=== PATIENT | male | born 1960 | race Caucasian/White ===

== ENCOUNTER 2016-10-04 12:07 | Emergency (ER) | payer MEDICAID ==
[2016-10-04 12:52] VITALS: BMI 48.0
[2016-10-04 13:03] LABS: MPV 7.5 fL (7.4-10.4)
[2016-10-04 13:16] LABS: BLOOD UREA NITROGEN 19 MG/DL (9-20); CALCIUM 8.8 MG/DL (8.4-10.2); CALCULATED OSMOLALITY 271 MOs/Kg (270-290); CHLORIDE 101 mEq/L (98-107); GLUCOSE 218 MG/DL (70-99); SODIUM LEVEL 136 mEq/L (137-146); TOTAL PROTEIN 7.5 G/DL (6.3-8.2)
[2016-10-04 13:18] LABS: PARTIAL THROMB. TIME 27.3 SEC (22-35)
[2016-10-04 13:49] LABS: SEG NEUTROPHIL 79 % (45-76)
[2016-10-04] MEDS ORDERED: MORPHINE 4 MG/ML INJECTION IV ONE (15:21)
[2016-10-04] MEDS ORDERED: ONDANSETRON HCL 4 MG/2 ML VIAL IV ONE (15:21)
[2016-10-04] MEDS ORDERED: NS 2,000 ML IV ONE (15:21)
--- NOTE | 2016-10-04 15:25 | EDPRACDOC ---
- General Information Information Source: Patient Mode Of Arrival: Car - History of Present Illness Onset: last night Exact Onset of Symptoms: Unknown HPI: PT PRESENTS STATING HE BEGAN VOMITING LAST NIGHT AND HAVING SOME BLOOD STREAKING IN HIS STOOL. STATES TODAY HE IS HAVING SHOULDER AND BACK PAIN. STATES HE ALSO HAS BEEN HAVING SOME SUBSTERNAL CHEST PAIN. DENIES SHOB. Symptoms Started: Reports: Gradually Symptoms Description: Constant Symptoms: Reports: Weak Symptom Severity: Reports: Unable to performs ADL's Relevant History of: Reports: GI Bleed, HI Associated signs and symptoms:: Reports: Chest pain, Vomiting <Susan Ortiz - Last Filed: 10/04/16 18:36> - History of Present Illness HPI: MD NOTE SEEN AND EXAMINED; THREE NEG TROPONINS. NL VQ SCAN. DIARRHEA WITH BLOOD STREAKS. STABLE FOR DC; NO CP FOR ME JUST DIFFUSE MUSCLE PAIN WITH N/V/D HILL <Stu Jackson - Last Filed: 10/04/16 19:26> - General Information Chief Complaint: Generalized Weakness Stated Complaint: WEAKNESS Time Seen by Provider: 10/04/16 15:14 Home Medications: Home Medications Doxepin HCl 50 mg PO HS 10/06/12 Lurasidone HCl [Latuda] 40 mg PO HS 10/06/12 Trazodone HCl [Desyrel] 150 mg PO HS 03/07/13 Temazepam [Restoril] 30 mg PO HS 04/23/13 Gabapentin [Neurontin] 300 mg PO TID 12/05/14 Amlodipine Besylate [Norvasc] 10 mg PO QHS 07/29/16 Lisinopril [Prinivil] 5 mg PO QHS 07/29/16 Lorazepam [Ativan] 0.5 - 1 mg PO Q8H 07/29/16 Carvedilol [Coreg] 3.125 mg PO BID 10/04/16 Cyclobenzaprine HCl [Flexeril] 10 mg PO TID 10/04/16 Hydrocortisone [Cortef] 10 mg PO TID 10/04/16 Ondansetron [Zofran Odt] 4 mg PO Q6H PRN #15 tab.rapdis 10/04/16 Allergies/Adverse Reactions: Allergies Allergy/AdvReac Type Severity Reaction Status Date / Time Penicillins Allergy Unknown Unknown/See Verified 10/04/16 12:49 Comments ED Past Medical History - History Reviewed Yes Nurses notes reviewed and agree except as marked - Patient Medical History Neurological History: Denies: Seizures Cardiac History: Reports: Coronary Artery Disease, Hypertension, Cardiac Catheterization, Hypercholesterolemia. Denies: Atrial Fibrillation, Syncope Respiratory History: Reports: Asthma GI/ History: Reports: Renal (Kidney) Cancer (L NEPHRECTOMY), Gastroesophageal Reflux, Ulcer Musculoskeletal History: Reports: Arthritis Psychological History: Reports: Depression, Schizophrenia, Bipolar Disorder Systemic History: Reports: Cancer (kidney), Diabetes Surgical History: Reports: Cardiac Catheterization, Other (LEFT KIDNEY (CANCER)) - Family Medical History Reports: Hypertension, Diabetes, Cardiac Disorders - Social Medical History Smoking Status: Never smoker <Susan Ortiz - Last Filed: 10/04/16 18:36> EDM Review of Systems - Review of Systems ROS Negative Except as Marked: Yes All systems reviewed and were negative except as marked <Susan Ortiz - Last Filed: 10/04/16 18:36> - Physical Exam Constitutional: Alert Oriented to: Time, Person, Place Last recorded Vital Signs: Last Vital Signs Temp 97.9 F 10/04/16 14:59 Pulse 87 10/04/16 15:09 Resp 16 10/04/16 14:59 BP 162/92 10/04/16 15:09 Pulse Ox 95 10/04/16 15:09 Oxygen Pulse Oxygen Saturation 95 O2 Device Room Air Oxygen Flow Rate Fraction of Inspired Oxygen ( FIO2) - HEENT Head: Normal ( normocephalic) Eye Exam: Normal (PERRL, EOMI, Sclera white) Oropharynx: Normal (Pharynx:Moist without exudate,Gums-no swelling) Nose: No Symptoms Reported (septum midline) Neck: Normal (FROM, trachea at midline) - Respiratory/Cardiovascular Respiratory: Normal - CTA (BBS clear to auscultation without adventitious sounds ) Cardiovascular: Normal (RRR without murmur, gallop or rub) - GI Auscultation: Normal (NABS) Palpation: Normal (Soft,No rebound or guarding, non distended) Tenderness: Non tender Graves's Sign: Negative Rectal Exam: Heme positive stool Stool: Blood streaked - Musculoskeletal Back: Normal (Non-Tender) Extremities: Normal (Normal tone, Pulses 2+ No cyanosis or edema, FROM) - Integumentary Skin: Normal, Warm, Dry Lymphatics: Normal (no adenopathy) - Neurologic Memory Impaired: Normal Motor Function: Normal (Normal tone, Pulses 2+ No cyanosis or edema, FROM) Cranial Nerve: Normal (CN II-X11 intact sensation, strength 5/5) Cerebellar: Normal Mood Description: Normal Perception: Normal <Susan Ortiz - Last Filed: 10/04/16 18:36> - Physical Exam Last recorded Vital Signs: Last Vital Signs Temp 97.9 F 10/04/16 14:59 Pulse 92 10/04/16 18:35 Resp 18 10/04/16 18:35 BP 160/67 10/04/16 18:35 Pulse Ox 93 10/04/16 18:35 Oxygen Pulse Oxygen Saturation 93 O2 Device Room Air Oxygen Flow Rate Fraction of Inspired Oxygen ( FIO2) <Stu Jackson - Last Filed: 10/04/16 19:26> NIH Stroke Scale Initial Evaluation Level of Consciousness: Alert LOC- Question: Answers Both Correctly LOC Commands: Both Task Correctly Best Gaze: Normal Visual: No Visual Loss Facial Palsy: Normal Movement Motor Arm LEFT: No Drift Motor Arm RIGHT: No Drift Motor Leg LEFT: No Drift Motor Leg RIGHT: No Drift Limb Ataxia: Absent Sensory: Normal Best Language: No Aphasia Dysarthria: Normal Extinction and Inattention: No Abnormality (Neglect) Score: 0out of42 <Susan Ortiz - Last Filed: 10/04/16 18:36> - Neurologic Orientation: Time, Person, Place Speech: Fluent, Clear Coginitive: Normal, Follows Commands Affect: Normal, Calm Thought: Coherent Perception: Normal <Susan Ortiz - Last Filed: 10/04/16 18:36> - Differential Diagnosis Anemia, Dehydration, Other - Results 10/04/16 12:50 10/04/16 12:50 WBC 10.9 xk/uL (3.8-10.8) H 10/04/16 12:50 RBC 4.60 xM/uL (4.70-6.10) L 10/04/16 12:50 Hgb 12.8 g/dL (14.0-18.0) L 10/04/16 12:50 Hct 37.5 % (42-52) L 10/04/16 12:50 MCV 82 fL (80-94) 10/04/16 12:50 MCH 27.9 pg (27-32) 10/04/16 12:50 MCHC 34.2 g/dl (33-36) 10/04/16 12:50 RDW 15.2 % (11.5-14.5) H 10/04/16 12:50 Plt Count 151 xk/uL (130-400) 10/04/16 12:50 MPV 7.5 fL (7.4-10.4) 10/04/16 12:50 Neut % (Auto) Cancelled 10/04/16 12:50 Lymph % (Auto) Cancelled 10/04/16 12:50 Brooks % (Auto) Cancelled 10/04/16 12:50 Eos % (Auto) Cancelled 10/04/16 12:50 Baso % (Auto) Cancelled 10/04/16 12:50 Absolute Neuts (auto) Cancelled 10/04/16 12:50 Absolute Lymphs (auto) Cancelled 10/04/16 12:50 Seg Neuts % (Manual) 79 % (45-76) H 10/04/16 12:50 Band Neutrophils % 10 % (0-5) H 10/04/16 12:50 Lymphocytes % (Manual) 8 % (17-44) L 10/04/16 12:50 Monocytes % (Manual) 2 % (0-10) 10/04/16 12:50 Basophils % (Manual) 1 % (0-2) 10/04/16 12:50 Absolute Neutrophils 9.70 xk/uL (1.7-8.2) H 10/04/16 12:50 Absolute Lymphocytes 0.87 xk/uL (0.65-4.75) 10/04/16 12:50 Platelet Estimate Norm (NORMAL) 10/04/16 12:50 RBC Morphology Norm 10/04/16 12:50 PT 10.7 SEC (9.2-11.2) 10/04/16 12:50 INR 1.0 10/04/16 12:50 APTT 27.3 SEC (22-35) 10/04/16 12:50 Sodium 136 mEq/L (137-146) L 10/04/16 12:50 Potassium 4.9 mEq/L (3.5-5.1) 10/04/16 12:50 Chloride 101 mEq/L (98-107) 10/04/16 12:50 Carbon Dioxide 23 mMOL/L (22-33) 10/04/16 12:50 Anion Gap 17 mEq/L (8-16) H 10/04/16 12:50 BUN 19 MG/DL (9-20) 10/04/16 12:50 Creatinine 1.70 MG/DL (0.66-1.25) H 10/04/16 12:50 Estimated GFR (MDRD) 42 mL/min (>=60) L 10/04/16 12:50 Glucose 218 MG/DL (70-99) H 10/04/16 12:50 POC Capillary Glucose 210 MG/DL (70-99) H 10/04/16 12:54 Calculated Osmolality 271 MOs/Kg (270-290) 10/04/16 12:50 Calcium 8.8 MG/DL (8.4-10.2) 10/04/16 12:50 Total Bilirubin 0.8 MG/DL (0.2-1.3) 10/04/16 12:50 AST 21 IU/L (17-59) 10/04/16 12:50 ALT 25 IU/L (21-72) 10/04/16 12:50 Alkaline Phosphatase 64 IU/L (38-126) 10/04/16 12:50 Troponin I < 0.01 ng/mL (<.04) 10/04/16 12:50 Ygu-Y-Fwlohdlplyc Pept 91 pg/mL (0-900) 10/04/16 12:50 Total Protein 7.5 G/DL (6.3-8.2) 10/04/16 12:50 Albumin 4.0 G/DL (3.5-5.0) 10/04/16 12:50 Lab Results 10/04/16 10/04/16 10/04/16 12:54 12:50 12:50 WBC 10.9 H RBC 4.60 L Hgb 12.8 L Hct 37.5 L MCV 82 MCH 27.9 MCHC 34.2 RDW 15.2 H Plt Count 151 MPV 7.5 Neut % (Auto) Cancelled Lymph % (Auto) Cancelled Brooks % (Auto) Cancelled Eos % (Auto) Cancelled Baso % (Auto) Cancelled Absolute Neuts (auto) Cancelled Absolute Lymphs (auto) Cancelled Seg Neuts % (Manual) 79 H Band Neutrophils % 10 H Lymphocytes % (Manual) 8 L Monocytes % (Manual) 2 Basophils % (Manual) 1 Absolute Neutrophils 9.70 H Absolute Lymphocytes 0.87 Platelet Estimate Norm RBC Morphology Norm PT 10.7 INR 1.0 APTT 27.3 Sodium Potassium Chloride Carbon Dioxide Anion Gap BUN Creatinine Estimated GFR (MDRD) Glucose POC Capillary Glucose 210 H Calculated Osmolality Calcium Total Bilirubin AST ALT Alkaline Phosphatase Troponin I Exi-Y-Whxttvbvzzv Pept Total Protein Albumin 10/04/16 12:50 WBC RBC Hgb Hct MCV MCH MCHC RDW Plt Count MPV Neut % (Auto) Lymph % (Auto) Brooks % (Auto) Eos % (Auto) Baso % (Auto) Absolute Neuts (auto) Absolute Lymphs (auto) Seg Neuts % (Manual) Band Neutrophils % Lymphocytes % (Manual) Monocytes % (Manual) Basophils % (Manual) Absolute Neutrophils Absolute Lymphocytes Platelet Estimate RBC Morphology PT INR APTT Sodium 136 L Potassium 4.9 Chloride 101 Carbon Dioxide 23 Anion Gap 17 H BUN 19 Creatinine 1.70 H Estimated GFR (MDRD) 42 L Glucose 218 H POC Capillary Glucose Calculated Osmolality 271 Calcium 8.8 Total Bilirubin 0.8 AST 21 ALT 25 Alkaline Phosphatase 64 Troponin I < 0.01 Cjk-T-Lpeyndyofii Pept 91 Total Protein 7.5 Albumin 4.0 - EKG EKG #1 EKG Time: 15:06 -: Yes EKG interpreted by me Rate: bpm: 86 [place]: Normal Rhythm: NSR, PVCs Block: None Hypertrophy: None ST: Normal <Susan Ortiz W - Last Filed: 10/04/16 18:36> - Results 10/04/16 12:50 10/04/16 12:50 WBC 10.9 xk/uL (3.8-10.8) H 10/04/16 12:50 RBC 4.60 xM/uL (4.70-6.10) L 10/04/16 12:50 Hgb 12.8 g/dL (14.0-18.0) L 10/04/16 12:50 Hct 37.5 % (42-52) L 10/04/16 12:50 MCV 82 fL (80-94) 10/04/16 12:50 MCH 27.9 pg (27-32) 10/04/16 12:50 MCHC 34.2 g/dl (33-36) 10/04/16 12:50 RDW 15.2 % (11.5-14.5) H 10/04/16 12:50 Plt Count 151 xk/uL (130-400) 10/04/16 12:50 MPV 7.5 fL (7.4-10.4) 10/04/16 12:50 Neut % (Auto) Cancelled 10/04/16 12:50 Lymph % (Auto) Cancelled 10/04/16 12:50 Brooks % (Auto) Cancelled 10/04/16 12:50 Eos % (Auto) Cancelled 10/04/16 12:50 Baso % (Auto) Cancelled 10/04/16 12:50 Absolute Neuts (auto) Cancelled 10/04/16 12:50 Absolute Lymphs (auto) Cancelled 10/04/16 12:50 Seg Neuts % (Manual) 79 % (45-76) H 10/04/16 12:50 Band Neutrophils % 10 % (0-5) H 10/04/16 12:50 Lymphocytes % (Manual) 8 % (17-44) L 10/04/16 12:50 Monocytes % (Manual) 2 % (0-10) 10/04/16 12:50 Basophils % (Manual) 1 % (0-2) 10/04/16 12:50 Absolute Neutrophils 9.70 xk/uL (1.7-8.2) H 10/04/16 12:50 Absolute Lymphocytes 0.87 xk/uL (0.65-4.75) 10/04/16 12:50 Platelet Estimate Norm (NORMAL) 10/04/16 12:50 RBC Morphology Norm 10/04/16 12:50 PT 10.7 SEC (9.2-11.2) 10/04/16 12:50 INR 1.0 10/04/16 12:50 APTT 27.3 SEC (22-35) 10/04/16 12:50 D-Dimer Quant (PE/DVT) 655 ng/mL (<500) H 10/04/16 12:50 Sodium 136 mEq/L (137-146) L 10/04/16 12:50 Potassium 4.9 mEq/L (3.5-5.1) 10/04/16 12:50 Chloride 101 mEq/L (98-107) 10/04/16 12:50 Carbon Dioxide 23 mMOL/L (22-33) 10/04/16 12:50 Anion Gap 17 mEq/L (8-16) H 10/04/16 12:50 BUN 19 MG/DL (9-20) 10/04/16 12:50 Creatinine 1.70 MG/DL (0.66-1.25) H 10/04/16 12:50 Estimated GFR (MDRD) 42 mL/min (>=60) L 10/04/16 12:50 Glucose 218 MG/DL (70-99) H 10/04/16 12:50 POC Capillary Glucose 210 MG/DL (70-99) H 10/04/16 12:54 Calculated Osmolality 271 MOs/Kg (270-290) 10/04/16 12:50 Lactic Acid 0.8 mEq/L (0.7-2.1) 10/04/16 15:48 Calcium 8.8 MG/DL (8.4-10.2) 10/04/16 12:50 Total Bilirubin 0.8 MG/DL (0.2-1.3) 10/04/16 12:50 AST 21 IU/L (17-59) 10/04/16 12:50 ALT 25 IU/L (21-72) 10/04/16 12:50 Alkaline Phosphatase 64 IU/L (38-126) 10/04/16 12:50 Troponin I < 0.01 ng/mL (<.04) 10/04/16 18:40 Ahj-J-Gwskwixkljr Pept 91 pg/mL (0-900) 10/04/16 12:50 Total Protein 7.5 G/DL (6.3-8.2) 10/04/16 12:50 Albumin 4.0 G/DL (3.5-5.0) 10/04/16 12:50 Lipase 105 U/L (23-300) 10/04/16 12:50 Urine Color Yellow 10/04/16 15:00 Urine Clarity Clear 10/04/16 15:00 Urine pH 6.0 (5.0-8.0) 10/04/16 15:00 Ur Specific [place] 1.005 (1.003-1.035) 10/04/16 15:00 Urine Protein Neg (NEG/TRACE) 10/04/16 15:00 Urine Glucose (UA) Neg (NEGATIVE) 10/04/16 15:00 Urine Ketones Neg (NEGATIVE) 10/04/16 15:00 Urine Occult Blood Neg (NEG/TRACE) 10/04/16 15:00 Urine Nitrite Neg (NEGATIVE) 10/04/16 15:00 Urine Bilirubin Neg (NEGATIVE) 10/04/16 15:00 Urine Urobilinogen <2.0 MG/DL (0-1) 10/04/16 15:00 Ur Leukocyte Esterase Neg (NEGATIVE) 10/04/16 15:00 Urine RBC 0-2 (0-2) 10/04/16 15:00 Urine WBC 0-2 (0-2) 10/04/16 15:00 Urine Bacteria Few (NEG/FEW) 10/04/16 15:00 Urine Mucus Occ (NEG/OCC) 10/04/16 15:00 Lab Results 10/04/16 10/04/16 10/04/16 18:40 15:48 15:25 WBC RBC Hgb Hct MCV MCH MCHC RDW Plt Count MPV Neut % (Auto) Lymph % (Auto) Brooks % (Auto) Eos % (Auto) Baso % (Auto) Absolute Neuts (auto) Absolute Lymphs (auto) Seg Neuts % (Manual) Band Neutrophils % Lymphocytes % (Manual) Monocytes % (Manual) Basophils % (Manual) Absolute Neutrophils Absolute Lymphocytes Platelet Estimate RBC Morphology PT INR APTT D-Dimer Quant (PE/DVT) Sodium Potassium Chloride Carbon Dioxide Anion Gap BUN Creatinine Estimated GFR (MDRD) Glucose POC Capillary Glucose Calculated Osmolality Lactic Acid 0.8 Calcium Total Bilirubin AST ALT Alkaline Phosphatase Troponin I < 0.01 < 0.01 Mzg-P-Aclapyriqdu Pept Total Protein Albumin Lipase Urine Color Urine Clarity Urine pH Ur Specific [place] Urine Protein Urine Glucose (UA) Urine Ketones Urine Occult Blood Urine Nitrite Urine Bilirubin Urine Urobilinogen Ur Leukocyte Esterase Urine RBC Urine WBC Urine Bacteria Urine Mucus 10/04/16 10/04/16 10/04/16 15:00 12:54 12:50 WBC RBC Hgb Hct MCV MCH MCHC RDW Plt Count MPV Neut % (Auto) Lymph % (Auto) [place] % (Auto) Eos % (Auto) Baso % (Auto) Absolute Neuts (auto) Absolute Lymphs (auto) Seg Neuts % (Manual) Band Neutrophils % Lymphocytes % (Manual) Monocytes % (Manual) Basophils % (Manual) Absolute Neutrophils Absolute Lymphocytes Platelet Estimate RBC Morphology PT INR APTT D-Dimer Quant (PE/DVT) 655 H Sodium Potassium Chloride Carbon Dioxide Anion Gap BUN Creatinine Estimated GFR (MDRD) Glucose POC Capillary Glucose 210 H Calculated Osmolality Lactic Acid Calcium Total Bilirubin AST ALT Alkaline Phosphatase Troponin I Lyk-P-Zozeqotheyx Pept Total Protein Albumin Lipase Urine Color Yellow Urine Clarity Clear Urine pH 6.0 Ur Specific [place] 1.005 Urine Protein Neg Urine Glucose (UA) Neg Urine Ketones Neg Urine Occult Blood Neg Urine Nitrite Neg Urine Bilirubin Neg Urine Urobilinogen <2.0 Ur Leukocyte Esterase Neg Urine RBC 0-2 Urine WBC 0-2 Urine Bacteria Few Urine Mucus Occ 10/04/16 10/04/16 10/04/16 12:50 12:50 12:50 WBC 10.9 H RBC 4.60 L Hgb 12.8 L Hct 37.5 L MCV 82 MCH 27.9 MCHC 34.2 RDW 15.2 H Plt Count 151 MPV 7.5 Neut % (Auto) Cancelled Lymph % (Auto) Cancelled [place] % (Auto) Cancelled Eos % (Auto) Cancelled Baso % (Auto) Cancelled Absolute Neuts (auto) Cancelled Absolute Lymphs (auto) Cancelled Seg Neuts % (Manual) 79 H Band Neutrophils % 10 H Lymphocytes % (Manual) 8 L Monocytes % (Manual) 2 Basophils % (Manual) 1 Absolute Neutrophils 9.70 H Absolute Lymphocytes 0.87 Platelet Estimate Norm RBC Morphology Norm PT 10.7 INR 1.0 APTT 27.3 D-Dimer Quant (PE/DVT) Sodium Potassium Chloride Carbon Dioxide Anion Gap BUN Creatinine Estimated GFR (MDRD) Glucose POC Capillary Glucose Calculated Osmolality Lactic Acid Calcium Total Bilirubin AST ALT Alkaline Phosphatase Troponin I Ifv-K-Ujnvmybwdxl Pept Total Protein Albumin Lipase 105 Urine Color Urine Clarity Urine pH Ur Specific [place] Urine Protein Urine Glucose (UA) Urine Ketones Urine Occult Blood Urine Nitrite Urine Bilirubin Urine Urobilinogen Ur Leukocyte Esterase Urine RBC Urine WBC Urine Bacteria Urine Mucus 10/04/16 12:50 WBC RBC Hgb Hct MCV MCH MCHC RDW Plt Count MPV Neut % (Auto) Lymph % (Auto) [place] % (Auto) Eos % (Auto) Baso % (Auto) Absolute Neuts (auto) Absolute Lymphs (auto) Seg Neuts % (Manual) Band Neutrophils % Lymphocytes % (Manual) Monocytes % (Manual) Basophils % (Manual) Absolute Neutrophils Absolute Lymphocytes Platelet Estimate RBC Morphology PT INR APTT D-Dimer Quant (PE/DVT) Sodium 136 L Potassium 4.9 Chloride 101 Carbon Dioxide 23 Anion Gap 17 H BUN 19 Creatinine 1.70 H Estimated GFR (MDRD) 42 L Glucose 218 H POC Capillary Glucose Calculated Osmolality 271 Lactic Acid Calcium 8.8 Total Bilirubin 0.8 AST 21 ALT 25 Alkaline Phosphatase 64 Troponin I < 0.01 Kph-C-Muatjfdqjob Pept 91 Total Protein 7.5 Albumin 4.0 Lipase Urine Color Urine Clarity Urine pH Ur Specific [place] Urine Protein Urine Glucose (UA) Urine Ketones Urine Occult Blood Urine Nitrite Urine Bilirubin Urine Urobilinogen Ur Leukocyte Esterase Urine RBC Urine WBC Urine Bacteria Urine Mucus <Stu Jackson - Last Filed: 10/04/16 19:26> - Departure Disposition: Home Education/Counseling Given To: Patient Education/Counseling Given Regarding: Diagnosis, Treatment, Prognosis, Follow Up <Susan Ortiz - Last Filed: 10/04/16 18:36> Decision Time to Discharge: 19:23 - Departure Yes I personally saw and evaluated the patient. <Stu Jackson - Last Filed: 10/04/16 19:26> - Departure Condition: Stable Final Diagnosis: Weakness, ACUTE ENTERITIS Chest pain Qualifiers: Chest pain type: unspecified Qualified Code(s): R07.9 - Chest pain, unspecified Instructions: Weakness (General), Chest Pain (ED), Chest Wall Pain Referrals: Van Kim II, MD [Staff Physician] - One Week Prescriptions: Ondansetron [Zofran Odt] 4 mg PO Q6H PRN #15 tab.rapdis PRN Reason: Nausea/Vomiting
[2016-10-04 15:56] LABS: LEUKOCYTES/URINE NEG (NEGATIVE); NITRITE/URINE NEG (NEGATIVE); RBC/URINE 0-2 (0-2); URINE OCCULT BLOOD NEG (NEG/TRACE); WBC/URINE 0-2 (0-2)
--- NOTE | 2016-10-04 16:08 | DIRPT ---
CLINICAL DATA: Chest pain. EXAM: PORTABLE CHEST 1 VIEW COMPARISON: 01/29/2015 FINDINGS: The heart size and mediastinal contours are within normal limits. There is no evidence of pulmonary edema, consolidation, pneumothorax, nodule or pleural fluid. The visualized skeletal structures are unremarkable. IMPRESSION: No active disease. Electronically Signed By: Adán Paris M.D. On: 10/04/2016 16:05
[2016-10-04] MEDS ORDERED: HYDROmorphone 1 MG INJECTION IV ONE (16:55)
[2016-10-04] MEDS ORDERED: Pharmacy Review for Metformin - IV Contrast Given SCH (17:00)
[2016-10-04] MEDS ORDERED: ALBUMIN, AGGREGATED 5 MCI V IV ONE (17:51)
[2016-10-04] MEDS ORDERED: XENON-133 10 MCI INHALATION INH ONE (17:51)
[2016-10-04 18:51] VITALS: BP 160/67
--- NOTE | 2016-10-04 19:20 | DIRPT ---
CLINICAL DATA: Shortness of breath for 2 months with leg swelling over the past 2 weeks. Elevated D-dimer level. Elevated creatinine. EXAM: NUCLEAR MEDICINE VENTILATION AND PERFUSION SCAN TECHNIQUE: Perfusion images were obtained in multiple projections after intravenous injection of radiopharmaceutical. Sequential dynamic ventilation images were obtained in standard planar projections following inhalation of radiopharmaceutical. RADIOPHARMACEUTICALS: 10.2 mCi Xe 133 and 5.5 mCi Tc99m MAA IV COMPARISON: 10/04/2016 chest radiograph FINDINGS: Ventilation: Normal Perfusion: Normal IMPRESSION: 1. Normal ventilation perfusion lung scan, without evidence of pulmonary embolus. Electronically Signed By: Angel Tee M.D. On: 10/04/2016 19:18
[2016-10-04] MEDS ORDERED: HYDROCODONE 5 MG/ACETAMIN 325 MG TAB PO ONE (19:41)
[2016-10-04 19:51] VITALS: PULSE 98; TEMP 98.7
== END 2016-10-04 19:50 | disposition home or self-care (01) ==
LOC: ED 12:07
DX: K52.9 Noninfective gastroenteritis and colitis, unspecified (principal); R53.1 Weakness
CPT/HCPCS: 36415; 71010; 78582; 80053; 81001; 82962; 83605; 83690; 83880; 84484; 85007; 85027; 85379; 85610; 85730; 87040; 93005; 96361; 96374; 96375; 99285; A9540; A9558; J1170; J2270; J2405; J3490

== ENCOUNTER 2016-10-28 10:25 | Observation (INO) | payer MEDICAID ==
[2016-10-28] MEDS ORDERED: NITROGLYCERINE 2 % OINTMENT PACK TOP ONE (10:37)
[2016-10-28] MEDS ORDERED: SODIUM CHLORIDE 0.9% 10 ML FLUSH FLUSH PRN (10:37)
[2016-10-28] MEDS ORDERED: MORPHINE 4 MG/ML INJECTION IV ONE ×2 (10:37→12:53)
[2016-10-28] MEDS ORDERED: ONDANSETRON HCL 4 MG/2 ML VIAL IV ONE (10:37)
--- NOTE | 2016-10-28 10:40 | EDPRACDOC ---
[id number] Source: Patient Mode of Arrival: Ambulance Home Medications: Home Medications Doxepin HCl 50 mg PO HS 10/06/12 Trazodone HCl [Desyrel] 150 mg PO HS 03/07/13 Temazepam [Restoril] 30 mg PO HS 04/23/13 Gabapentin [Neurontin] 300 mg PO TID 12/05/14 Amlodipine Besylate [Norvasc] 10 mg PO QAM 07/29/16 Lisinopril [Prinivil] 5 mg PO QHS 07/29/16 Carvedilol [Coreg] 3.125 mg PO BID 10/04/16 Cyclobenzaprine HCl [Flexeril] 10 mg PO TID PRN 10/04/16 Hydrocortisone [Cortef] 10 mg PO TID 10/04/16 Hydrocodone Bit/Acetaminophen [[place] 10-325 Tablet] 1 each PO TID PRN 10/28/16 Lorazepam [Ativan] 1 mg PO Q8H PRN 10/28/16 Lurasidone HCl [Latuda] 80 mg PO HS 10/28/16 Allergies/Adverse Reactions: Allergies Allergy/AdvReac Type Severity Reaction Status Date / Time Penicillins Allergy Unknown Unknown/See Verified 10/28/16 11:15 Comments - History of Present Illness Onset: yesterday HPI: Pt c/o substernal chest pressure radiating to l axilla with sob, n/v, leg swelling x 2 days. Pt states had similar episode in past and was told its angina. Denies fever, cough, congestion, abd pain, loss of control bowel or bladder. Pt states he fell this morning and has pain in neck and back. Chest Pain Location: Reports: Substernal, Left Chest Pain Radiation: Reports: Arm (L) (axilla) Symptoms Occur: Reports: Gradually Cardiac Risk Factors: Reports: Hyperlipidemia, Hypertension, Diabetes. Denies: Smoker Cardiac History of: Reports: Cardiac Cath, Stress Test PE Risk Factors: Reports: None Prehospital Care: Reports: ASA (324mg) Pain Came On: Reports: Gradually Pain Status: Present Now Pain Description: Reports: Pressure Pain Severity: Moderate Pain Worsens With: Reports: Nothing Pain Improves With: Reports: Nothing Associated Signs and Symptoms: Reports: SOB, Nausea, Vomiting ED Past Medical History - History Reviewed Yes Nurses notes reviewed and agree except as marked - Patient Medical History Neurological History: Denies: Seizures Cardiac History: Reports: Coronary Artery Disease, Hypertension, Cardiac Catheterization, Hypercholesterolemia. Denies: Atrial Fibrillation, Syncope Respiratory History: Reports: Asthma GI/ History: Reports: Renal (Kidney) Cancer (L NEPHRECTOMY), Gastroesophageal Reflux, Ulcer Musculoskeletal History: Reports: Arthritis Psychological History: Reports: Depression, Schizophrenia, Bipolar Disorder Systemic History: Reports: Cancer (kidney), Diabetes Surgical History: Reports: Cardiac Catheterization, Other (LEFT KIDNEY (CANCER)) - Family Medical History Reports: Hypertension, Diabetes, Cardiac Disorders - Social Medical History Smoking Status: Never smoker ETOH: None Substance Abuse: None EDM Review of Systems - Review of Systems Constitutional: No Symptoms Reported. negative: Fever, Chills, Weakness, Fatigue, Loss of Appetite Ears: No Symptoms Reported. negative: Pain, Hearing Loss, Drainage, Ear Pulling Throat: No Symptoms Reported. negative: Pain, Swelling Nose: No Symptoms Reported. negative: Congestion, Bleeding, Discharge, Injection, Swelling, Deformity, Ecchymosis, Tender, Abrasion, Laceration Mouth: No Symptoms Reported. negative: Pain, Drooling Respiratory: Shortness of Breath Cardiovascular: Chest Pain Gastrointestinal: Nausea, Vomiting Genitourinary: No Symptoms Reported. negative: Dysuria, Hematuria, Frequency, Discharge, Bleeding, Testicular Pain, Neurological: No Symptoms Reported. negative: Headache, Dizziness, Seizure, Numbness, Weakness, Speech Difficulty, Gait Difficulty Musculoskeletal: Back, Neck Integumentary: No Symptoms Reported. negative: Itching, Rash, Bruising, Wound Allergic/Immunologic: No Symptoms Reported. negative: Hives, Itching Hematologic: No Symptoms Reported. negative: Lymphadenopathy, Easy Bruising, Easy Bleeding Psychiatric: No Symptoms Reported. negative: Anxiety, Depression, Hallucinations, Insomnia, Suicidal - Physical Exam Constitutional: Alert Oriented to: Time, Person, Place Last recorded Vital Signs: Oxygen Pulse Oxygen Saturation O2 Device Oxygen Flow Rate Fraction of Inspired Oxygen ( FIO2) - HEENT Head: Normal ( normocephalic) Eye Exam: Normal (PERRL, EOMI, Sclera white) Oropharynx: Normal (Pharynx:Moist without exudate,Gums-no swelling) Tympanic Membrane: Normal ENT EAC: Normal Nose: No Symptoms Reported (septum midline) Neck: Midline, Paraspinal Tenderness, Tender - Respiratory/Cardiovascular Respiratory: Normal - CTA (BBS clear to auscultation without adventitious sounds ) Cardiovascular: Normal (RRR without murmur, gallop or rub) - GI Auscultation: Normal (NABS) Palpation: Normal (Soft,No rebound or guarding, non distended) Tenderness: Non tender Graves's Sign: Negative - Musculoskeletal Back: Thoracic TTP, Lumbar TTP Extremities: Edema (bilateral lower legs +3), Pedal Edema - Integumentary Skin: Normal, Warm, Dry Lymphatics: Normal (no adenopathy) - Neurologic Memory Impaired: Normal Motor Function: Normal (Normal tone, Pulses 2+ No cyanosis or edema, FROM) Mood Description: Normal Perception: Normal ED Chest Pain Exam - Respiratory/Cardiovascular Respiratory: Normal - CTA (clear to auscultation without adventitious sounds) Cardiovascular/Chest: Normal (RRR without murmur, gallop or rub) Radial Pulse: Normal Edema: 3+ (bilateral lower leg) Chest Palpation: Normal - Differential Diagnosis Angina, Costochondritis, Gastritis, Myocardial infarction - Action Patient received Aspirin within last 24 hours?: Yes ASA given in the ED: No Patient received Beta Tex within last 24hrs: No - Re-evaluation Re-evaluation 1 Re-evaluation Time: 13:54 (chest pain resolved, c/o pain bilateral legs due to swelling) - Results 10/28/16 11:23 10/28/16 11:23 - EKG EKG #1 EKG Time: 10:49 Rate: bpm: 79 [place]: Normal Rhythm: NSR, PACs Block: None ST: Normal Comparison: 10/04/16 (no significant change) - Diagnostic Imaging T-Spine Image interpreted by: Radiologist IMPRESSION: Degenerative changes within the mid and lower thoracic spine, mild to moderate in degree. No acute findings. C-spine Image interpreted by: Radiologist IMPRESSION: No acute fracture or subluxation. Mild degenerative changes as described above. L-Spine Image interpreted by: Radiologist IMPRESSION: No acute fracture or subluxation. Mild degenerative changes as described above. Chest Image interpreted by: Radiologist IMPRESSION: Subsegmental atelectasis LEFT base. - Departure Disposition: Admit IP To This Hospital Final Diagnosis: Bilateral leg edema Chest pain Qualifiers: Chest pain type: unspecified Qualified Code(s): R07.9 - Chest pain, unspecified Education/Counseling Given To: Patient Education/Counseling Given Regarding: Diagnosis, Treatment Decision to Admit Time: 15:05 (Dr Amin contacted Hospitalist for addmission) Decision to admit date: 10/28/16 Decision to admit: from ED
[2016-10-28 11:31] LABS: AUTOMATED BASOPHIL 0.4 % (0-2); AUTOMATED EOSINOPHIL 0.4 % (0-5); AUTOMATED LYMPH 7.8 % (17-44); AUTOMATED MONOCYTE 4.6 % (3-10); AUTOMATED NEUTROPHIL 86.8 % (45-76); MPV 7.1 fL (7.4-10.4)
[2016-10-28 11:44] LABS: BLOOD UREA NITROGEN 28 MG/DL (9-20); CALCIUM 9.3 MG/DL (8.4-10.2); CALCULATED OSMOLALITY 272 MOs/Kg (270-290); CHLORIDE 103 mEq/L (98-107); GLUCOSE 126 MG/DL (70-99); SODIUM LEVEL 137 mEq/L (137-146)
[2016-10-28 11:54] LABS: PARTIAL THROMB. TIME 20.4 SEC (22-35); PT-INR 0.9
[2016-10-28 12:23] LABS: LEUKOCYTES/URINE NEG (NEGATIVE); NITRITE/URINE NEG (NEGATIVE); RBC/URINE 0-2 (0-2); URINE OCCULT BLOOD NEG (NEG/TRACE)
--- NOTE | 2016-10-28 13:24 | DIRPT ---
CLINICAL DATA: Fall, sub- sternal chest pain, leg swelling for 2 days, posterior neck pain, back pain EXAM: CERVICAL SPINE - COMPLETE 4+ VIEW COMPARISON: 07/29/2016 FINDINGS: Eight views of the cervical spine submitted. No acute fracture or subluxation. Again noted degenerative changes C1-C2 articulation. Spurring of odontoid again noted. Again noted mild inferior spurring lower endplate of C2 vertebral body. Minimal disc space flattening with anterior spurring at C5-C6 and C6-C7 level. No prevertebral soft tissue swelling. Cervical airway is patent. IMPRESSION: No acute fracture or subluxation. Mild degenerative changes as described above. Electronically Signed By: Buck Elam M.D. On: 10/28/2016 13:21
--- NOTE | 2016-10-28 13:27 | DIRPT ---
CLINICAL DATA: Chest pain, substernal chest pressure radiating to the LEFT axilla, associated nausea, vomiting, shortness of breath, and leg swelling for 2 days, fell this morning, BILATERAL shoulder and posterior neck/back pain EXAM: CHEST 2 VIEW COMPARISON: 10/04/2016, multiple earlier chest radiographs from 2014 and [address] chest 04/03/2014. FINDINGS: Minimal enlargement of cardiac silhouette. Prominent mediastinum particularly RIGHT paratracheal soft tissues unchanged since 2013 ; prior CT exam demonstrates mediastinal lipomatosis. Pulmonary vascularity normal. Subsegmental atelectasis at LEFT base. Remaining lungs clear. No pleural effusion or pneumothorax. Endplate spur formation thoracic spine. IMPRESSION: Subsegmental atelectasis LEFT base. Electronically Signed By: Tino Contreras M.D. On: 10/28/2016 13:25
--- NOTE | 2016-10-28 13:27 | DIRPT ---
CLINICAL DATA: Fall, substernal chest pressure. EXAM: THORACIC SPINE 2 VIEWS COMPARISON: None. FINDINGS: AP and lateral views of the thoracic spine are provided. Degenerative changes are seen within the mid and lower thoracic spine, mild to moderate in degree, with associated disc space narrowings and anterior osteophyte formation. Osseous alignment is normal. No fracture line or displaced fracture fragment seen. No acute-appearing cortical irregularity or osseous lesion. Paravertebral soft tissues are unremarkable. Probable cardiomegaly, incompletely imaged. IMPRESSION: Degenerative changes within the mid and lower thoracic spine, mild to moderate in degree. No acute findings. Electronically Signed By: Aureliano Mireles M.D. On: 10/28/2016 13:24
--- NOTE | 2016-10-28 13:28 | DIRPT ---
CLINICAL DATA: Fall this morning, bilateral shoulder pain, back pain, sub- sternal chest pain EXAM: LUMBAR SPINE - COMPLETE 4+ VIEW COMPARISON: 07/29/2016 FINDINGS: Five views of the lumbar spine submitted. No acute fracture or subluxation. Again noted mild anterior spurring upper and lower endplate of L4 and L5 vertebral body. Mild disc space flattening at L5-S1 level. Mild facet degenerative changes at L5 level. Alignment and vertebral body heights are preserved. IMPRESSION: No acute fracture or subluxation. Mild degenerative changes as described above. Electronically Signed By: Buck Elam M.D. On: 10/28/2016 13:25
[2016-10-28] MEDS ORDERED: NITROGLYCERINE 0.4 MG TAB SL PRN (15:21)
[2016-10-28] MEDS ORDERED: LORAZEPAM 1 MG TAB PO PRN (15:22)
--- NOTE | 2016-10-28 15:25 | HISTPHYS ---
- Chief Complaint chest pain - History of Present Illness 56 yowm presented to ed for evaluation of chest discomfort. Patient stays that yesterday he has developed chest pressure and heaviness that lasted almost all night off and on. He reports feeling sweaty and short of breath, he also reports radiation to neck and shoulder. The longest time sensation lasted was 40 minutes and patient reports that this has been fairly intense about 8/10. He reports that he has sustained a fall lately where he injured his upper back and has been having fairly intense discomfort in that area. On detailed questioning patient stays that over the past few weeks any kind of physical exertion will bring on chest pressure and heaviness and dyspnea. Chest symptoms will improve with him resting at least 15 -20 minutes. Given intensity and persistence of his chest symptoms patient decided to be evaluated emergency room. - Medical History Cardiac History: Reports: Coronary Artery Disease, Hypertension, Cardiac Catheterization, Hypercholesterolemia, Valvular Heart Disease. Denies: Atrial Fibrillation, Syncope Respiratory History: Reports: Asthma GI/ History: Reports: Renal (Kidney) Cancer (L NEPHRECTOMY), Gastroesophageal Reflux, Ulcer Musculoskeletal History: Reports: Arthritis Systemic History: Reports: Cancer (kidney), Diabetes Neurological History: Reports: No Significant History. Denies: Seizures Psychological History: Reports: Depression, Anxiety, Schizophrenia, Bipolar Disorder - Surgical History Reports: Cholecystectomy, Cardiac Catheterization, Hernia Surgery, Other (LEFT KIDNEY (CANCER), half right kidney, left forarm) - Medictions/Allergies Allergies Penicillins Allergy (Unknown, Verified 10/28/16 11:15) Unknown/See Comments Current Medication List: Reviewed Home Medications Doxepin HCl 50 mg PO HS 10/06/12 Trazodone HCl [Desyrel] 150 mg PO HS 03/07/13 Temazepam [Restoril] 30 mg PO HS 04/23/13 Gabapentin [Neurontin] 300 mg PO TID 12/05/14 Amlodipine Besylate [Norvasc] 10 mg PO QAM 07/29/16 Lisinopril [Prinivil] 5 mg PO QHS 07/29/16 Carvedilol [Coreg] 3.125 mg PO BID 10/04/16 Cyclobenzaprine HCl [Flexeril] 10 mg PO TID PRN 10/04/16 Hydrocortisone [Cortef] 10 mg PO TID 10/04/16 Hydrocodone Bit/Acetaminophen [[place] 10-325 Tablet] 1 each PO TID PRN 10/28/16 Lorazepam [Ativan] 1 mg PO Q8H PRN 10/28/16 Lurasidone HCl [Latuda] 80 mg PO HS 10/28/16 - Family History Reports: Hypertension, Diabetes, Cardiac Disorders - Social History Travel Outside of [place] in the Last 3 Months?: No Lives: With Family, Other (Lives with sister, 1 son) Smoking Status: Never smoker - Review of Systems Constitutional: Weakness, Weight gain Eyes: No Symptoms Reported Ears: No Symptoms Reported Nose: No Symptoms Reported Mouth: No Symptoms Reported Throat/Neck: No Symptoms Reported Respiratory: No Symptoms Reported, Shortness of Breath, Dyspnea Cardiovascular: Chest Pain Gastrointestinal: Nausea, Heartburn Genitourinary: No Symptoms Reported, Nocturia Neurological: Weakness Musculoskeletal:: Arthritis Integumentary: No Symptoms Reported Allergic/Immunologic: No Symptoms Reported Hematologic: No Symptoms Reported Endocrine: Weight Gain Psychiatric: No Symptoms Reported - Physical Exam Vital Signs: Initial Vitals Temperature 97.8 F 10/28/16 10:45 Pulse Rate 85 10/28/16 10:45 Respiratory Rate 18 10/28/16 10:45 Blood Pressure 161/83 10/28/16 10:45 Pulse Oxygen Saturation 93 10/28/16 10:45 Constitutional: Alert Oriented to: Time, Person - HEENT Head: Normal Eye: Normal Oropharynx: Normal ENT EAC: Normal TMJ: Normal Nose: No Symptoms Reported Respiratory: Diminished, Rhonchi Cardiovascular: Normal - GI Auscultation: Normal Palpation: Normal Tenderness: Non tender Rectal Exam: Deferred - Exam Deferred: Yes - Musculoskeletal Back: Normal Extremities: Edema Spine: non-tender, limited range of motion - Integumentary Skin: Normal, Warm, Dry Lymphatics: Normal - Neurologic Memory Impaired: Normal Motor Function: Abnormal Cranial Nerve: Normal Cerebellar: Ataxia Mood Description: Anxious Thought: Coherent Perception: Normal - Focused CV Perfusion Exam Vital Signs: Last Vital Signs Temp 97.8 F 10/28/16 10:45 Pulse 67 10/28/16 14:02 Resp 18 10/28/16 14:02 BP 134/74 10/28/16 14:02 Pulse Ox 94 10/28/16 14:02 - Diagnostic Findings Allergies Penicillins Allergy (Unknown, Verified 10/28/16 11:15) Unknown/See Comments 10/28/16 11:23 10/28/16 11:23 Abnormal Lab Results 10/28/16 10/28/16 10/28/16 11:23 11:23 11:23 Hgb 13.2 L Hct 38.8 L RDW 14.9 H Plt Count 113 L MPV 7.1 L Neut % (Auto) 86.8 H Lymph % (Auto) 7.8 L Absolute Neuts (auto) 8.77 H APTT 20.4 L BUN 28 H Creatinine 1.40 H Estimated GFR (MDRD) 52 L Glucose 126 H Last Vital Signs Temp 97.8 F 10/28/16 10:45 Pulse 67 10/28/16 14:02 Resp 18 10/28/16 14:02 BP 134/74 10/28/16 14:02 Pulse Ox 94 10/28/16 14:02 EKG: nsr , no acute stt changes - Assessment (1) Chest pain R07.9 - CHEST PAIN, UNSPECIFIED Acute Present on Admission: Yes Qualifiers: Chest pain type: unspecified Ischemic chest pain type: I Qualified Code(s ): R07.9 - Chest pain, unspecified Patient will be admitted to chest Pain Center. Serial cardiac enzymes and EKGs will be obtained. Cardioprotective regimen was provided. Nuclear stress test in the morning as per weight protocol. (2) CKD (chronic kidney disease) N18.9 - CHRONIC KIDNEY DISEASE, UNSPECIFIED Chronic Present on Admission: Yes Qualifiers: Chronic kidney disease stage: stage 2 (mild) Qualified Code(s): N18.2 - Chronic kidney disease, stage 2 (mild) Monitor renal function avoid any nephrotoxins. (3) HTN (hypertension) I10 - ESSENTIAL (PRIMARY) HYPERTENSION Chronic Present on Admission: Yes Qualifiers: Hypertension type: essential hypertension Qualified Code(s): I10 - Essential (primary) hypertension Stable home meds keep SBP less than 140 (4) GERD (gastroesophageal reflux disease) K21.9 - GASTRO-ESOPHAGEAL REFLUX DISEASE WITHOUT ESOPHAGITIS Chronic Present on Admission: Yes Qualifiers: Esophagitis presence: without esophagitis Qualified Code(s): K21.9 - Gastro -esophageal reflux disease without esophagitis Continue PPI (5) Low back pain M54.5 - LOW BACK PAIN Chronic Present on Admission: Yes Qualifiers: Chronicity: chronic Back pain laterality: unspecified Sciatica presence: S Sciatica laterality: sciatica laterality unspecified Qualified Code(s): M54.40 - Lumbago with sciatica, unspecified side; G89.29 - Other chronic pain Continue pain medications on as needed basis (6) Morbid obesity E66.01 - MORBID (SEVERE) OBESITY DUE TO EXCESS CALORIES Chronic Present on Admission: Yes Qualifiers: Obesity type: due to excess calories Qualified Code(s): E66.01 - Morbid ( severe) obesity due to excess calories Weight loss medically indicated and necessary (7) Neuropathy G62.9 - POLYNEUROPATHY, UNSPECIFIED Chronic Present on Admission: Yes Continue Neurontin Case Care Discussed with: Patient, Nursing Staff Total Time: 55 min Critical Care: No Code: 42300
[2016-10-28] MEDS ORDERED: Pharmacy Order Set Alert SCH (16:00)
[2016-10-28 16:17] VITALS: BMI 48.2
[2016-10-28] MEDS ORDERED: Vaccine Screening Complete SCH (17:00)
[2016-10-28] MEDS: ENOXAPARIN 80 MG/0.8 ML PFS SQ SCH (17:18)
[2016-10-28] MEDS: HYDROCODONE 10 MG/ACETAMIN 325 MG TAB PO PRN (17:19)
[2016-10-28] MEDS: MORPHINE 2 MG/ML INJECTION IV PRN (20:22)
[2016-10-28] MEDS: TRAZODONE 50 MG TAB PO SCH (20:26)
[2016-10-28] MEDS: HYDROCORTISONE 10 MG TAB PO SCH (20:26)
[2016-10-28] MEDS: LURASIDONE HCL 40 MG PO SCH (20:26)
[2016-10-28] MEDS: CARVEDILOL 6.25 MG TAB PO SCH (20:26)
[2016-10-28] MEDS: TEMAZEPAM 15 MG CAP PO SCH (20:26)
[2016-10-28] MEDS: LISINOPRIL 5 MG TAB PO SCH (20:27)
[2016-10-28] MEDS: DOXEPIN 25 MG CAP PO SCH (20:27)
[2016-10-28] MEDS: GABAPENTIN 300 MG CAP PO SCH (20:27)
[2016-10-28] MEDS ORDERED: TEMAZEPAM 30 MG PO SCH (21:00)
[2016-10-28] MEDS ORDERED: DOXEPIN HCL 50 MG PO SCH (21:00)
[2016-10-29] MEDS: HYDROCORTISONE 10 MG TAB PO SCH ×3 (05:38→12:23)
[2016-10-29] MEDS: GABAPENTIN 300 MG CAP PO SCH ×4 (05:39→19:54)
[2016-10-29 07:01] LABS: LDL (calc.) 46.8 MG/DL (<100); VLDL (calc.) 9.2 MG/DL (5-40)
[2016-10-29] MEDS: AMLODIPINE 10 MG TAB PO SCH (07:40)
[2016-10-29] MEDS: HYDROCODONE 10 MG/ACETAMIN 325 MG TAB PO PRN (07:40)
[2016-10-29] MEDS: CARVEDILOL 6.25 MG TAB PO SCH ×2 (07:41→19:52)
[2016-10-29] MEDS: ASPIRIN 325 MG TAB PO SCH (07:41)
--- NOTE | 2016-10-29 09:11 | GENMEDPROG ---
Subjective Note: Patient in bed responsive follows commands. Overall had uneventful night. Denies any further episodes of chest discomfort. Still some soreness in his back. Notes Reviewed: Yes Events from last night noted and discussed with Clinical Staff Current Medication List: Reviewed Currently: Reports: JIN, Sputum, Reflux Sx DVT Prophylaxis: Yes - Physical Examination Vital Signs and I&O: Last Vital Signs Temp 98.0 F 10/29/16 04:00 Pulse 68 10/29/16 09:06 Resp 18 10/29/16 08:00 BP 129/84 10/29/16 08:00 Pulse Ox 95 10/29/16 08:00 Oxygen Pulse Oxygen Saturation 95 O2 Device Room Air Oxygen Flow Rate Fraction of Inspired Oxygen ( FIO2) Intake & Output 10/26/16 10/27/16 10/28/16 10/29/16 23:59 23:59 23:59 23:59 Intake Total 910 110 Output Total 300 1450 Balance 610 -1340 Patient's weight 152.634 kg 152.067 kg General: Alert, Oriented x3, Cooperative, No acute distress HEENT: Normal, PERRLA, EOMI, Anicteric Sclera Neck: Non-tender, Limited range of motion Lymphatics: Normal Respiratory: Diminished, Rhonchi Cardiovascular: Regular rate, Normal S1, Normal S2, Murmurs GI: Normal bowel sounds, Soft, Non tender, No hepatospenomegaly, No masses, Obese Extremities/Musculoskeletal: Edema, DJD Skin: Warm,Dry and Intact, No rashes, No breakdown, No significant lesion Neurological: Normal speech, Cranial nerves 3-12 NL Psych/Mental Status: Anxious Lab/DI/Studies Reviewed: 10/28/16 11:23 10/29/16 05:00 Abnormal Lab Results 10/28/16 10/28/16 10/28/16 11:23 11:23 11:23 Hgb 13.2 L Hct 38.8 L RDW 14.9 H Plt Count 113 L MPV 7.1 L Neut % (Auto) 86.8 H Lymph % (Auto) 7.8 L Absolute Neuts (auto) 8.77 H APTT 20.4 L BUN 28 H Creatinine 1.40 H Estimated GFR (MDRD) 52 L Glucose 126 H POC Capillary Glucose 10/28/16 16:57 Hgb Hct RDW Plt Count MPV Neut % (Auto) Lymph % (Auto) Absolute Neuts (auto) APTT BUN Creatinine Estimated GFR (MDRD) Glucose POC Capillary Glucose 115 H - Assessment (1) Chest pain Acute R07.9 - CHEST PAIN, UNSPECIFIED Qualifiers: Chest pain type: unspecified Ischemic chest pain type: I Qualified Code(s ): R07.9 - Chest pain, unspecified Comment/Plan: Ruled out AR by serial cardiac enzymes and EKGs. Given BMI of 48 patient will undergo 2 days stress test protocol (2) CKD (chronic kidney disease) Chronic N18.9 - CHRONIC KIDNEY DISEASE, UNSPECIFIED Qualifiers: Chronic kidney disease stage: stage 2 (mild) Qualified Code(s): N18.2 - Chronic kidney disease, stage 2 (mild) Comment/Plan: Monitor renal function avoid any nephrotoxins. (3) HTN (hypertension) Chronic I10 - ESSENTIAL (PRIMARY) HYPERTENSION Qualifiers: Hypertension type: essential hypertension Qualified Code(s): I10 - Essential (primary) hypertension Comment/Plan: Stable home meds keep SBP less than 140. Stable and under control (4) GERD (gastroesophageal reflux disease) Chronic K21.9 - GASTRO-ESOPHAGEAL REFLUX DISEASE WITHOUT ESOPHAGITIS Qualifiers: Esophagitis presence: without esophagitis Qualified Code(s): K21.9 - Gastro -esophageal reflux disease without esophagitis Comment/Plan: Continue PPI (5) Low back pain Chronic M54.5 - LOW BACK PAIN Qualifiers: Chronicity: chronic Back pain laterality: unspecified Sciatica presence: S Sciatica laterality: sciatica laterality unspecified Qualified Code(s): M54.40 - Lumbago with sciatica, unspecified side; G89.29 - Other chronic pain Comment/Plan: Continue pain medications on as needed basis. Stable and under control (6) Morbid obesity Chronic E66.01 - MORBID (SEVERE) OBESITY DUE TO EXCESS CALORIES Qualifiers: Obesity type: due to excess calories Qualified Code(s): E66.01 - Morbid ( severe) obesity due to excess calories Comment/Plan: Weight loss medically indicated and necessary (7) Neuropathy Chronic G62.9 - POLYNEUROPATHY, UNSPECIFIED Comment/Plan: Continue Neurontin Case Care Discussed with: Patient, Nursing Staff, Director Imaging Education/Counseling Given To: Patient Education/Counseling Given Regarding: Diagnosis, Treatment, Prognosis, Follow Up Total Time: 45 min . Critical Care: No
[2016-10-29] MEDS: MORPHINE 2 MG/ML INJECTION IV PRN ×3 (09:25→19:49)
--- NOTE | 2016-10-29 10:49 | CAPUEKG ---
[place], [place] Test Date: 2016-10-28 Pat Name: GIOVANY SCOTT Department: Room: 436 Gender: Male Athletic Monitor: RATNA MANNING: Requested By: Order Number: Reading MD: Kashmir Russ MD Measurements Intervals [place] Rate: 59 P: 54 NH: 166 QRS: 4 QRSD: 94 T: 49 QT: 406 QTc: 401 Interpretive Statements Sinus bradycardia Low voltage QRS Borderline ECG Electronically Signed On 10-29-16 10:49:02 EST by Kashmir Russ MD [id number] [id number]
[2016-10-29] MEDS: ENOXAPARIN 80 MG/0.8 ML PFS SQ SCH (17:57)
[2016-10-29] MEDS ORDERED: HYDROCORTISONE 10 MG TAB PO SCH (18:30)
[2016-10-29] MEDS: TRAZODONE 50 MG TAB PO SCH (19:52)
[2016-10-29] MEDS: LURASIDONE HCL 40 MG PO SCH (19:53)
[2016-10-29] MEDS: LISINOPRIL 5 MG TAB PO SCH (19:54)
[2016-10-29] MEDS: DOXEPIN 25 MG CAP PO SCH (19:54)
[2016-10-29] MEDS: TEMAZEPAM 15 MG CAP PO SCH (19:57)
[2016-10-29] MEDS ORDERED: ATORVASTATIN 40 MG TAB PO SCH (21:00)
[2016-10-30 04:53] LABS: BLOOD UREA NITROGEN 37 MG/DL (9-20); CALCIUM 8.9 MG/DL (8.4-10.2); CALCULATED OSMOLALITY 271 MOs/Kg (270-290); CHLORIDE 98 mEq/L (98-107); GLUCOSE 92 MG/DL (70-99); SODIUM LEVEL 136 mEq/L (137-146)
[2016-10-30] MEDS: GABAPENTIN 300 MG CAP PO SCH ×2 (05:04→12:39)
[2016-10-30] MEDS ORDERED: SODIUM CHLORIDE 0.9% 10 ML FLUSH FLUSH ONE (08:00)
[2016-10-30] MEDS ORDERED: REGADENOSON 0.4 MG/5 ML SYRINGE IV ONE (08:00)
[2016-10-30 08:10] VITALS: TEMP 98.5
[2016-10-30] MEDS ORDERED: HYDROCORTISONE 10 MG TAB PO SCH (09:00)
[2016-10-30] MEDS ORDERED: SESTAMIBI 8 MCI V IV ONE (10:02)
[2016-10-30] MEDS: HYDROCODONE 10 MG/ACETAMIN 325 MG TAB PO PRN (11:49)
[2016-10-30] MEDS: AMLODIPINE 10 MG TAB PO SCH (11:50)
[2016-10-30] MEDS: ASPIRIN 325 MG TAB PO SCH (11:50)
[2016-10-30] MEDS: CARVEDILOL 6.25 MG TAB PO SCH (11:50)
[2016-10-30 11:55] VITALS: BP 127/76
--- NOTE | 2016-10-30 11:59 | PCM.STRESS ---
Nuclear stress test (Lexiscan): Indication for procedure: Chest pain. Patient was brought to the stress test room in a fasting state. IV was already inserted. The patient got connected to the gambling monitor. Blood pressure was monitored as well as pulse oximetry. Lexiscan was given during in usual fashion. That was followed by injection of radioisotope. Then patient was monitored for about 5 min. Resting heart rate was 68 beats/ min. Resting blood pressure was 120/92 mm of mercury. Resting EKG showed normal sinus rhythm, normal P interval, normal QRS complex duration morphology, APCs no diagnostic ST-T segment changes. EKG during the infusion of Lexiscan and shortly after showed no diagnostic ST segment changes. Symptoms noted during the infusion and after include mild shortness of breath. Nuclear assessment: Resting imaging showed small discrete defect involving mid portion of the anteroseptal wall. Stress imaging showed small and discrete defect involving mid portion of the anteroseptal wall. Gated imaging revealed normal contractility in all segments. The ejection fraction was 57%. Conclusions: 1. No ischemia seen on this scan. 2. Normal gated images 3. Normal ejection fraction calculated to be of 57% Comments fixed defect involving mid portion of the anteroseptal wall is probably related to attenuation..
[2016-10-30 13:03] VITALS: PULSE 79
--- NOTE | 2016-10-30 13:18 | PCM.DCS92 ---
- Final/Secondary Discharge Diagnosis (1) Chest pain Resolved R07.9 - CHEST PAIN, UNSPECIFIED Present on Admission: Yes unspecified I R07.9 - Chest pain, unspecified Comment: Atypical/noncardiac. Ruled out TX by EKGs and enzymes, stress test negative for ischemia (2) CKD (chronic kidney disease) Resolved N18.9 - CHRONIC KIDNEY DISEASE, UNSPECIFIED Present on Admission: Yes stage 2 (mild) N18.2 - Chronic kidney disease, stage 2 (mild) Comment: Monitor renal function avoid any nephrotoxins. Kidney function back to normal (3) HTN (hypertension) Chronic I10 - ESSENTIAL (PRIMARY) HYPERTENSION Present on Admission: Yes essential hypertension I10 - Essential (primary) hypertension Comment: Stable home meds keep SBP less than 140. Stable and under control (4) GERD (gastroesophageal reflux disease) Chronic K21.9 - GASTRO-ESOPHAGEAL REFLUX DISEASE WITHOUT ESOPHAGITIS Present on Admission: Yes without esophagitis K21.9 - Gastro-esophageal reflux disease without esophagitis Comment: Continue PPI (5) Low back pain Chronic M54.5 - LOW BACK PAIN Present on Admission: Yes chronic unspecified S sciatica laterality unspecified M54.40 - Lumbago with sciatica, unspecified side; G89.29 - Other chronic pain Comment: Continue pain medications on as needed basis. Stable and under control (6) Morbid obesity Chronic E66.01 - MORBID (SEVERE) OBESITY DUE TO EXCESS CALORIES Present on Admission: Yes due to excess calories E66.01 - Morbid (severe) obesity due to excess calories Comment: Weight loss medically indicated and necessary (7) Neuropathy Chronic G62.9 - POLYNEUROPATHY, UNSPECIFIED Present on Admission: Yes Comment: Continue Neurontin Discharge Disposition: Discharge w/ Home Health Discharge Condition: Good Cognitive Discharge Status: Unimpaired Fuctional Discharge Status: Independent, Fall Risk Physician Follow up/Referrals: Kenia Vincent DIRECTOR OF PRECLINICAL RESEARCH [Primary Care Provider] - One Week (hosptial will call with appointment.) Home Medications / New Prescriptions: New Aspirin (Enteric Coated) [Halfprin] 81 mg PO DAILY #90 tab Continue Doxepin HCl 50 mg PO HS Trazodone HCl [Desyrel] 150 mg PO HS Temazepam [Restoril] 30 mg PO HS Gabapentin [Neurontin] 300 mg PO TID Lisinopril [Prinivil] 5 mg PO QHS Amlodipine Besylate [Norvasc] 10 mg PO QAM Cyclobenzaprine HCl [Flexeril] 10 mg PO TID PRN PRN Reason: Muscle Spasms Carvedilol [Coreg] 3.125 mg PO BID Hydrocortisone [Cortef] 20 mg PO QAM Hydrocodone Bit/Acetaminophen [Yaphank 10-325 Tablet] 1 each PO TID PRN PRN Reason: Pain Lorazepam [Ativan] 1 mg PO Q8H PRN PRN Reason: Anxiety Lurasidone HCl [Latuda] 80 mg PO HS Hydrocortisone [Cortef] 10 mg PO .AT 1830 O2 Device: Room Air Additional Instructions: rest when needed. stay near bridges or us assistive equipment to help with mobility. Continue home health services as before. Diet at Discharge: As Tolerated, Cardiac, Heart Healthy, Low Salt, Low Fat Activity: No Restrictions, As Tolerated Call Office For: Worsening Symptoms, Fever over 101 F, Pain Uncontrolled By Meds Discontinue use of:: Alcohol, All Illegal Substances, All Types of Tobacco - DC Summary Notes Hospital Course Note:: Discharge summary on patient named GIOVANY SCOTT admitted to [facility] on 10/28/16 by Tate Cordoba MD. Date of discharge is []. Patient has initially presented to emergency room on for evaluation of exertion related chest tightness pressure and heaviness. Please refer to the admission for further details. Patient was admitted to [facility]. Serial cardiac enzymes and EKGs were obtained and he has ruled out [place]. Given BMI of close to 50 he required 2 days stress test protocol. During hospital stay patient has remained hemodynamically stable and outpatient regimen for his chronic medical conditions was continued. There was no further episodes of chest discomfort of any sort during hospital stay. On October 30 patient has undergone nuclear stress test which was negative for ischemia with normal ejection fraction. Patient was advised to follow up with PCP to investigate other possible causes of chest discomfort. On March 30 in clinically stable condition patient has been discharged home to the care of the family. He was advised prior to discharge that weight loss is medically indicated and absolutely necessary. Total Time: 40 min. Code: 88978 Wound Care Surgical Site: No - Physical Exam Vital Signs: Last Vital Signs Temp 98.5 F 10/30/16 11:52 Pulse 79 10/30/16 13:02 Resp 18 10/30/16 11:52 BP 127/76 10/30/16 11:52 Pulse Ox 99 10/30/16 11:52 Oxygen Pulse Oxygen Saturation 99 O2 Device Room Air Oxygen Flow Rate Fraction of Inspired Oxygen ( FIO2) Constitutional: No apparent distress, Alert Oriented to: Time, Person - HEENT Head: Normal Eye: Normal Oropharynx: Normal ENT EAC: Normal TMJ: Normal Nose: No Symptoms Reported - Respiratory/Cardiovascular Respiratory: Diminished, Rhonchi - GI Auscultation: Normal Palpation: Normal Tenderness: Non tender Rectal Exam: Deferred Stool: Brown - Musculoskeletal Back: Normal Extremities: Normal, Edema - Integumentary Skin: Normal, Warm, Dry Lymphatics: Normal - Neurologic Memory Impaired: Normal Motor Function: Normal Cranial Nerve: Normal Cerebellar: Ataxia Mood Description: Anxious Thought: Coherent Perception: Normal - Other Exam Other Exam Findings: Allergies Penicillins Allergy (Unknown, Verified 10/28/16 11:15) Unknown/See Comments Discharge Home Medication List Doxepin HCl 50 mg PO HS 10/06/12 [History Confirmed 10/30/16] Trazodone HCl [Desyrel] 150 mg PO HS 03/07/13 [History Confirmed 10/30/16] Temazepam [Restoril] 30 mg PO HS 04/23/13 [History Confirmed 10/30/16] Gabapentin [Neurontin] 300 mg PO TID 12/05/14 [History Confirmed 10/30/16] Amlodipine Besylate [Norvasc] 10 mg PO QAM 07/29/16 [History Confirmed 10/30/16] Lisinopril [Prinivil] 5 mg PO QHS 07/29/16 [History Confirmed 10/30/16] Carvedilol [Coreg] 3.125 mg PO BID 10/04/16 [History Confirmed 10/30/16] Cyclobenzaprine HCl [Flexeril] 10 mg PO TID PRN 10/04/16 [History Confirmed ] Hydrocortisone [Cortef] 20 mg PO QAM 10/04/16 [History Confirmed 10/30/16] Hydrocodone Bit/Acetaminophen [Yaphank 10-325 Tablet] 1 each PO TID PRN 10/28/16 [ History Confirmed 10/30/16] Lorazepam [Ativan] 1 mg PO Q8H PRN 10/28/16 [History Confirmed 10/28/16] Lurasidone HCl [Latuda] 80 mg PO HS 10/28/16 [History Confirmed 10/30/16] Hydrocortisone [Cortef] 10 mg PO .AT 1830 10/29/16 [History Confirmed 10/30/16] Aspirin (Enteric Coated) [Halfprin] 81 mg PO DAILY #90 tab 10/30/16 [Rx] New Discharge Medications (Rx) Aspirin (Enteric Coated) [Halfprin] 81 mg PO DAILY #90 tab 10/30/16 [Rx] 10/28/16 11:23 10/30/16 03:36 Abnormal Lab Results 10/30/16 03:36 Sodium 136 L Potassium 5.3 H BUN 37 H Creatinine 1.30 H Estimated GFR (MDRD) 57 L
== END 2016-10-30 15:00 | disposition home or self-care (01) ==
LOC: ED 10:25 → PCU 15:26
PROVIDERS: ADMIT Internal Medicine; ATTEND Internal Medicine
DX: R07.9 Chest pain, unspecified (principal); I12.9 Hypertensive chronic kidney disease with stage 1 through stage 4 chronic kidney disease, or unspecified chronic kidney disease; E11.22 Type 2 diabetes mellitus with diabetic chronic kidney disease; N18.2 Chronic kidney disease, stage 2 (mild); M54.40 Lumbago with sciatica, unspecified side; G89.29 Other chronic pain; E78.00 Pure hypercholesterolemia, unspecified; R06.02 Shortness of breath; R60.0 Localized edema; K21.9 Gastro-esophageal reflux disease without esophagitis; G62.9 Polyneuropathy, unspecified; E66.01 Morbid (severe) obesity due to excess calories; I25.10 Atherosclerotic heart disease of native coronary artery without angina pectoris; J45.909 Unspecified asthma, uncomplicated; Z90.5 Acquired absence of kidney; Z79.899 Other long term (current) drug therapy
CPT/HCPCS: 36415; 71020; 72050; 72070; 72110; 78452; 80048; 80053; 80061; 81001; 82947; 82962; 83036; 83735; 83880; 84484; 85025; 85610; 85730; 93005; 93017; 96372; 96374; 96376; 99285; A4216; A9500; G0378; J1650; J2270; J2785; J3490; J2405